=== PATIENT | female | born 1975 | race Caucasian/White ===

== ENCOUNTER 2018-10-17 18:01 | Emergency (ER) | payer SELFPAY ==
--- NOTE | 2018-10-17 18:04 | ER Report ---
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 Patient admits to smoking, not being on her antihypertensives for the past several weeks. Patient usually is on lisinopril 40 mg, amlodipine. Patient reports lower back pain, coughing with rib pain. Patient reports that she is continuing to smoke. Patient is afebrile, hemodynamically stable at time of evaluation. REVIEW OF SYSTEMS: Constitutional: No fever, no chills. Eyes: No discharge. ENT: No sore throat. Cardiovascular: No chest pain, no palpitations. Respiratory: + Nonproductive cough, + shortness of breath. Gastrointestinal: No abdominal pain, no vomiting.+ Bilateral lower back pain Genitourinary: No hematuria. Musculoskeletal: Bilateral flank pain Skin: No rashes. Neurological: No headache. Allergies: Coded Allergies: No Known Drug Allergies (Unverified , 10/17/18) Home Meds Active Scripts Oseltamivir Phosphate (TAMIFLU) 75 Mg Cap, 75 MG PO BID for 5 Days, #10 CAP 0 Refills Prov:SHELL CAVAZOS DO 10/17/18 Amlodipine Besylate (AMLODIPINE BESYLATE) 10 Mg Tablet, 1 TAB PO QDAY for 30 Days, #30 TAB Prov:SHELL CAVAZOS DO 10/17/18 Lisinopril (LISINOPRIL) 40 Mg Tablet, 40 MG PO QDAY for 30 Days, #30 TAB Prov:SHELL CAVAZOS DO 10/17/18 Constitutional Vital Sign - Last 24 Hours 10/17/18 18:05 Temp 98.6 Pulse 92 Resp 18 Pulse Ox 91 O2 Delivery Room Air Physical Exam General Appearance: The patient is alert, has no immediate need for airway protection and no signs of toxicity. Uncomfortable appearing Eyes: Pupils equal and round no pallor or injection. ENT, Mouth: Mucous membranes are moist. Respiratory: There are no retractions, lungs are clear to auscultation. Cardiovascular: Regular rate and rhythm. Gastrointestinal: Abdomen is soft and non tender, no masses, bowel sounds n ormal. Neurological: No focal neurological findings Skin: Warm and dry, no rashes. Musculoskeletal: Neck is supple non tender. Extremities are nontender, nonswollen and have full range of motion. DIFFERENTIAL DIAGNOSIS: After history and physical exam differential diagnosis was considered for adult fever including but not limited to viral syndromes including influenza, urinary tract infection, pneumonia and sepsis, medication noncompliance Medical Decision Making Data Points Result Diagram: 10/17/18 1830 10/17/18 1830 Laboratory Hematology Test 10/17/18 18:13 10/17/18 18:30 10/17/18 18:37 Influenza Virus Type A (PCR) Positive (NEGATIVE) Influenza Virus Type B (PCR) Negative (NEGATIVE) Red Blood Count 4.72 M/uL (4.17-5.56) Mean Corpuscular Volume 86.8 fL (80.0-96.0) Mean Corpuscular Hemoglobin 29.5 pg (26.0-33.0) Mean Corpuscular Hemoglobin Concent 33.9 g/dL (32.0-36.0) Red Cell Distribution Width 13.0 % (11.5-14.5) Mean Platelet Volume 8.8 fL (7.2-11.1) Neutrophils (%) (Auto) 52.8 % (39.4-72.5) Lymphocytes (%) (Auto) 28.0 % (17.6-49.6) Monocytes (%) (Auto) 13.7 % (4.1-12.4) Eosinophils (%) (Auto) 4.8 % (0.4-6.7) Basophils (%) (Auto) 0.7 % (0.3-1.4) Nucleated RBC Relative Count (auto) 0.1 /100WBC Neutrophils # (Auto) 2.4 K/uL (2.0-7.4) Lymphocytes # (Auto) 1.3 K/uL (1.3-3.6) Monocytes # (Auto) 0.6 K/uL (0.3-1.0) Eosinophils # (Auto) 0.2 K/uL (0.0-0.5) Basophils # (Auto) 0.0 K/uL (0.0-0.1) Nucleated RBC Absolute Count (auto) 0.01 K/uL Sodium Level 137 mmol/L (137-145) Potassium Level 3.3 mmol/L (3.5-5.0) Chloride Level 102 mmol/L (98-107) Carbon Dioxide Level 27 mmol/L (22-31) Blood Urea Nitrogen 18 mg/dl (7-18) Creatinine 0.70 mg/dl (0.52-1.04) Glomerular Filtration Rate Calc > 60.0 Random Glucose 185 mg/dl (75-110) Calcium Level 8.4 mg/dl (8.4-10.2) Total Bilirubin 0.1 mg/dl (0.2-1.3) Aspartate Amino Transf (AST/SGOT) 34 U/L (0-35) Alanine Aminotransferase (ALT/SGPT) 47 U/L (0-56) Alkaline Phosphatase 110 U/L (0-126) Total Protein 6.7 g/dl (6.3-8.2) Albumin 3.6 g/dl (3.5-5.0) Urine Color Yellow Urine Clarity Clear Urine pH 6.0 pH (4.8-9.5) Urine Specific [place] 1.026 Urine Protein Negative mg/dL (NEGATIVE) Urine Glucose (UA) 500 mg/dL (NEGATIVE) Urine Ketones Trace mg/dL (NEGATIVE) Urine Blood Negative (NEGATIVE) Urine Nitrite Negative (NEGATIVE) Urine Bilirubin Negative (NEGATIVE) Urine Urobilinogen 2.0 mg/dL (0.2-1.9) Urine Leukocyte Esterase Negative (NEGATIVE) Urine RBC 1 /HPF (0-2/HPF) Urine WBC <1 /HPF (0-5/HPF) Urine Squamous Epithelial Cells None /LPF (</=FEW) Urine Bacteria Negative /HPF (NONE-FEW) Urine Mucus None /HPF (NONE-FEW) Chemistry Test 10/17/18 18:13 10/17/18 18:30 10/17/18 18:37 Influenza Virus Type A (PCR) Positive (NEGATIVE) Influenza Virus Type B (PCR) Negative (NEGATIVE) White Blood Count 4.5 k/uL (4.5-11.0) Red Blood Count 4.72 M/uL (4.17-5.56) Hemoglobin 13.9 g/dL (12.0-16.0) Hematocrit 41.0 % (34.0-47.0) Mean Corpuscular Volume 86.8 fL (80.0-96.0) Mean Corpuscular Hemoglobin 29.5 pg (26.0-33.0) Mean Corpuscular Hemoglobin Concent 33.9 g/dL (32.0-36.0) Red Cell Distribution Width 13.0 % (11.5-14.5) Platelet Count 229 K/uL (150-450) Mean Platelet Volume 8.8 fL (7.2-11.1) Neutrophils (%) (Auto) 52.8 % (39.4-72.5) Lymphocytes (%) (Auto) 28.0 % (17.6-49.6) Monocytes (%) (Auto) 13.7 % (4.1-12.4) Eosinophils (%) (Auto) 4.8 % (0.4-6.7) Basophils (%) (Auto) 0.7 % (0.3-1.4) Nucleated RBC Relative Count (auto) 0.1 /100WBC Neutrophils # (Auto) 2.4 K/uL (2.0-7.4) Lymphocytes # (Auto) 1.3 K/uL (1.3-3.6) Monocytes # (Auto) 0.6 K/uL (0.3-1.0) Eosinophils # (Auto) 0.2 K/uL (0.0-0.5) Basophils # (Auto) 0.0 K/uL (0.0-0.1) Nucleated RBC Absolute Count (auto) 0.01 K/uL Glomerular Filtration Rate Calc > 60.0 Calcium Level 8.4 mg/dl (8.4-10.2) Total Bilirubin 0.1 mg/dl (0.2-1.3) Aspartate Amino Transf (AST/SGOT) 34 U/L (0-35) Alanine Aminotransferase (ALT/SGPT) 47 U/L (0-56) Alkaline Phosphatase 110 U/L (0-126) Total Protein 6.7 g/dl (6.3-8.2) Albumin 3.6 g/dl (3.5-5.0) Urine Color Yellow Urine Clarity Clear Urine pH 6.0 pH (4.8-9.5) Urine Specific [place] 1.026 Urine Protein Negative mg/dL (NEGATIVE) Urine Glucose (UA) 500 mg/dL (NEGATIVE) Urine Ketones Trace mg/dL (NEGATIVE) Urine Blood Negative (NEGATIVE) Urine Nitrite Negative (NEGATIVE) Urine Bilirubin Negative (NEGATIVE) Urine Urobilinogen 2.0 mg/dL (0.2-1.9) Urine Leukocyte Esterase Negative (NEGATIVE) Urine RBC 1 /HPF (0-2/HPF) Urine WBC <1 /HPF (0-5/HPF) Urine Squamous Epithelial Cells None /LPF (</=FEW) Urine Bacteria Negative /HPF (NONE-FEW) Urine Mucus None /HPF (NONE-FEW) Urinalysis Test 10/17/18 18:37 Urine Color Yellow Urine Clarity Clear Urine pH 6.0 pH (4.8-9.5) Urine Specific [place] 1.026 Urine Protein Negative mg/dL (NEGATIVE) Urine Glucose (UA) 500 mg/dL (NEGATIVE) Urine Ketones Trace mg/dL (NEGATIVE) Urine Blood Negative (NEGATIVE) Urine Nitrite Negative (NEGATIVE) Urine Bilirubin Negative (NEGATIVE) Urine Urobilinogen 2.0 mg/dL (0.2-1.9) Urine Leukocyte Esterase Negative (NEGATIVE) Urine RBC 1 /HPF (0-2/HPF) Urine WBC <1 /HPF (0-5/HPF) Urine Squamous Epithelial Cells None /LPF (</=FEW) Urine Bacteria Negative /HPF (NONE-FEW) Urine Mucus None /HPF (NONE-FEW) EKG/Imaging Imaging Location: [facility] [place] Patient: Dedra Damon : 1975 Visit/Account:[id number] Date of Sevice: 10/17/2018 Study: Single portable view of the chest. Indication: Cough and weakness Comparison study: None. Technique: Single AP view of the chest demonstrates no evidence of acute infiltrate. There is no evidence of pleural effusion or pneumothorax. The mediastinal, cardiac, and diaphragmatic contours are unremarkable. IMPRESSION: Unremarkable chest. ED Course/Re-evaluation ED Course Patient is a 43-year-old female here with complaints of cough, shortness breath, flank pain since, hypertension not currently on her antihypertensives as she is visiting for work. Patient was given scripts for amlodipine, lisinopril to take in the interim she was notably hypertensive at time of evaluation with no signs of end organ damage. Labs are unremarkable. Patient was positive for influenza A. Patient was given prescription for Tamiflu and advised to aggressively hydrate. Recommend close PCP follow-up. Return precautions provided Decision to Disposition Date: Oct 17, 2018 Decision to Disposition Time: 19:49 Depart Departure Latest Vital Signs Vital Signs Date Time Temp Pulse Resp B/P (MAP) Pulse Ox O2 Delivery O2 Flow Rate FiO2 10/17/18 18:05 98.6 92 18 91 Room Air Impression: Primary Impression: Hypertension Additional Impression: Influenza A Condition: Improved Disposition: HOME OR SELF-CARE New Scripts Oseltamivir Phosphate (TAMIFLU) 75 Mg Cap 75 MG PO BID for 5 Days, #10 CAP 0 Refills Prov: SHELL CAVAZOS DO 10/17/18 Amlodipine Besylate (AMLODIPINE BESYLATE) 10 Mg Tablet 1 TAB PO QDAY for 30 Days, #30 TAB Prov: SHELL CAVAZOS DO 10/17/18 Lisinopril (LISINOPRIL) 40 Mg Tablet 40 MG PO QDAY for 30 Days, #30 TAB Prov: SHELL CAVAZOS DO 10/17/18 Departure Forms: ER Transition Record, Medications Reconciliation, Off Work/School Form, School or Work Release?: Work Number of days to be released: 2 Patient Portal Information Patient Instructions: Hypertension (ED), Influenza (DC) Additional Instructions: Please drink plenty of water. Please fill your antihypertensive medications to manage her blood pressure. Please follow-up with her primary care provider and check your blood pressure in the meantime. Please take Tamiflu 1 tablet twice daily for 5 days. Please return immediately for develop chest pain, decreased urination, headaches, fevers or chills. Problem Qualifiers SHELL CAVAZOS DO Oct 17, 2018 18:04
[2018-10-17] MEDS ORDERED: LISI-374 PO (18:21)
[2018-10-17] MEDS ORDERED: AMLO-127 PO (18:21)
[2018-10-17 18:45] LABS: PLATELET COUNT, AUTOMATED 229 K/uL (150-450)
[2018-10-17] MEDS ORDERED: OSE75 PO (19:07)
--- NOTE | 2018-10-17 19:35 | RADIOLOGY IMAGING REPORT ---
FACILITY: [facility] PATIENT NAME: Dedra Damon : 1975 MR: [id number] V: [id number] EXAM DATE: ORDERING PHYSICIAN: SHELL CAVAZOS TECHNOLOGIST: Location: [facility] Patient: Dedra Damon : 1975 Visit/Account:[id number] Date of Sevice: 10/17/2018 Study: Single portable view of the chest. Indication: Cough and weakness Comparison study: None. Technique: Single AP view of the chest demonstrates no evidence of acute infiltrate. There is no evid ence of pleural effusion or pneumothorax. The mediastinal, cardiac, and diaphragmatic contours are un remarkable. IMPRESSION: Unremarkable chest. Report Dictated By: Yayo Mccall at 10/17/2018 7:32 PM Report E-Signed By: Yayo Mccall at 10/17/2018 7:32 PM [id number]
[2018-10-17] MEDS ORDERED: KETOROLAC 60 MG/2 ML VIAL IM ONE (19:55)
== END 2018-10-17 20:23 | disposition home or self-care (01) ==
LOC: ER 18:22
DX: J10.1 Influenza due to other identified influenza virus with other respiratory manifestations (principal); I10 Essential (primary) hypertension
CPT/HCPCS: 36415; 71045; 81001; 85025; 87502; 96372; 99283; J1885; 82040; 82247; 82310; 82374; 82435; 82565; 82947; 84075; 84132; 84155; 84295; 84450; 84460; 84520

== ENCOUNTER 2018-11-25 21:14 | Emergency (ER) | payer SELFPAY ==
[~2018-11-25 21:14] MED LIST changes: -ASPI-1471 PO
[2018-11-25] MEDS ORDERED: NS(*) 0.9% 1000 ML BAG 1,000 ML IV ONE (21:21)
--- NOTE | 2018-11-25 21:21 | ER Report ---
History and Physical Time Seen By MD: 21:21 HPI/ROS CHIEF COMPLAINT: Syncope, chest pain HISTORY OF PRESENT ILLNESS: 43-year-old female with a history of an enlarged heart status post stent placement 11 years ago collapsed in the [facility]. Developing sudden onset of chest pain. Patient on arrival has an EKG that shows gross ST elevation in the inferior leads of approximate 4-5 mm with reciprocal changes. There are no old EKGs for comparison. Patient fell striking her face. She has dental trauma to her front teeth. She denies head impact or neck pain. EMS administered aspirin in the field. Patient reports a history of an enlarged heart and 2+ posterior be taking Plavix but she ran out. Her previous ER visit here shows refill of her blood pressure medication, lisinopril and amlodipine REVIEW OF SYSTEMS: Respiratory: No cough, no dyspnea. Cardiovascular: As above Gastrointestinal: No vomiting, no abdominal pain. Musculoskeletal: No back pain. Allergies: Coded Allergies: No Known Drug Allergies (Unverified , 11/25/18) Home Meds Active Scripts Amlodipine Besylate (AMLODIPINE BESYLATE) 10 Mg Tablet, 1 TAB PO QDAY for 30 Days, #30 TAB Prov:SHELL CAVAZOS DO 10/17/18 Lisinopril (LISINOPRIL) 40 Mg Tablet, 40 MG PO QDAY for 30 Days, #30 TAB Prov:SHELL CAVAZOS DO 10/17/18 Reported Medications Aspirin (ASPIR 81) 81 Mg Tablet.dr, 81 MG PO QDAY, TAB 11/25/18 Discontinued Scripts Oseltamivir Phosphate (TAMIFLU) 75 Mg Cap, 75 MG PO BID for 5 Days, #10 CAP 0 Refills Prov:SHELL CAVAZOS DO 10/17/18 Past Medical/Surgical History Enlarged heart, stent placement 11 years ago Reviewed Nurses Notes: Yes Old Medical Records Reviewed: Yes Hx Substance Use Disorder: No Hx Alcohol Use: No Constitutional Vital Sign - Last 24 Hours 11/25/18 11/25/18 11/25/18 11/25/18 21:17 21:21 21:24 21:29 Pulse 72 79 73 Resp 20 26 19 B/P (MAP) 131/93 131/93 (106) 131/116 (121) Pulse Ox 99 99 97 O2 Delivery Nasal Cannula 11/25/18 11/25/18 11/25/18 11/25/18 21:34 21:39 21:42 21:44 Pulse 72 80 77 Resp 8 B/P (MAP) 137/106 (116) 152/111 (125) 158/118 (131) Pulse Ox 99 98 94 11/25/18 11/25/18 11/25/18 11/25/18 21:46 21:48 21:49 21:50 Pulse 81 B/P (MAP) 178/117 (137) 164/114 (131) 150/139 (143) Pulse Ox 100 11/25/18 11/25/18 11/25/18 11/25/18 21:52 21:54 21:59 22:00 Pulse 82 84 B/P (MAP) 156/115 (129) ???/??? (1665) 181/131 (148) Pulse Ox 100 11/25/18 11/25/18 11/25/18 11/25/18 22:02 22:04 22:06 22:08 Pulse 89 B/P (MAP) 206/124 (151) 178/120 (139) 193/128 (149) 191/118 (142) Pulse Ox 100 11/25/18 11/25/18 11/25/18 11/25/18 22:09 22:10 22:12 22:14 Pulse 86 90 B/P (MAP) 194/118 (143) 191/96 (127) 186/118 (140) Pulse Ox 100 99 11/25/18 11/25/18 11/25/18 11/25/18 22:16 22:18 22:19 22:20 Pulse 98 B/P (MAP) 150/134 (139) 180/96 (124) 164/102 (122) Pulse Ox 98 11/25/18 11/25/18 22:22 22:24 Pulse 101 B/P (MAP) 166/116 (133) Pulse Ox 98 Physical Exam Vital signs stable, afebrile General Appearance: The patient is alert, has no immediate need for airway protection and no current signs of toxicity., Pale, diaphoretic Eyes: Pupils equal and round no injection. Respiratory: Chest is non tender, lungs are clear to auscultation. Cardiac: regular rate and rhythm, distant heart sounds Gastrointestinal: Abdomen is soft and non tender, no masses, bowel sounds normal. Musculoskeletal: Neck: Neck is supple and non tender. Extremities have full range of motion and are non tender. Skin: No rashes or lesions. DIFFERENTIAL DIAGNOSIS: After history and physical exam differential diagnosis was considered for chest pain including but not limited to myocardial ischemia, pericarditis pulmonary embolus, chest wall pain, pleural inflammation and pulmonary infectious causes. Medical Decision Making Data Points Result Diagram: 11/25/18212911/25/182129 Laboratory Hematology Test 11/25/18 21:30 Red Blood Count 5.55 M/uL (4.17-5.56) Mean Corpuscular Volume 86.1 fL (80.0-96.0) Mean Corpuscular Hemoglobin 29.0 pg (26.0-33.0) Mean Corpuscular Hemoglobin Concent 33.6 g/dL (32.0-36.0) Red Cell Distribution Width 13.0 % (11.5-14.5) Mean Platelet Volume 8.7 fL (7.2-11.1) Neutrophils (%) (Auto) 71.2 % (39.4-72.5) Lymphocytes (%) (Auto) 20.4 % (17.6-49.6) Monocytes (%) (Auto) 6.7 % (4.1-12.4) Eosinophils (%) (Auto) 0.8 % (0.4-6.7) Basophils (%) (Auto) 0.9 % (0.3-1.4) Nucleated RBC Relative Count (auto) 0.1 /100WBC Neutrophils # (Auto) 11.3 K/uL (2.0-7.4) Lymphocytes # (Auto) 3.3 K/uL (1.3-3.6) Monocytes # (Auto) 1.1 K/uL (0.3-1.0) Eosinophils # (Auto) 0.1 K/uL (0.0-0.5) Basophils # (Auto) 0.1 K/uL (0.0-0.1) Nucleated RBC Absolute Count (auto) 0.01 K/uL Prothrombin Time 13.4 seconds (12.0-14.4) Prothromb Time International Ratio 1.02 Activated Partial Thromboplast Time 26 seconds (23-35) D-Dimer Quantitative (PE/DVT) 0.57 ug/ml (0-0.50) Sodium Level 137 mmol/L (137-145) Potassium Level 3.0 mmol/L (3.5-5.0) Chloride Level 100 mmol/L (98-107) Carbon Dioxide Level 25 mmol/L (22-31) Blood Urea Nitrogen 13 mg/dl (7-18) Creatinine 0.70 mg/dl (0.52-1.04) Glomerular Filtration Rate Calc > 60.0 Random Glucose 264 mg/dl (75-110) Calcium Level 9.0 mg/dl (8.4-10.2) Total Bilirubin 0.1 mg/dl (0.2-1.3) Aspartate Amino Transf (AST/SGOT) 40 U/L (0-35) Alanine Aminotransferase (ALT/SGPT) 43 U/L (0-56) Alkaline Phosphatase 113 U/L (0-126) Troponin I 0.146 ng/ml B-Type Natriuretic Peptide 39 pg/ml (0-100) Total Protein 7.7 g/dl (6.3-8.2) Albumin 4.2 g/dl (3.5-5.0) Human Chorionic Gonadotropin, Qual Negative (NEGATIVE) Chemistry Test 11/25/18 21:30 White Blood Count 15.9 k/uL (4.5-11.0) Red Blood Count 5.55 M/uL (4.17-5.56) Hemoglobin 16.1 g/dL (12.0-16.0) Hematocrit 47.8 % (34.0-47.0) Mean Corpuscular Volume 86.1 fL (80.0-96.0) Mean Corpuscular Hemoglobin 29.0 pg (26.0-33.0) Mean Corpuscular Hemoglobin Concent 33.6 g/dL (32.0-36.0) Red Cell Distribution Width 13.0 % (11.5-14.5) Platelet Count 354 K/uL (150-450) Mean Platelet Volume 8.7 fL (7.2-11.1) Neutrophils (%) (Auto) 71.2 % (39.4-72.5) Lymphocytes (%) (Auto) 20.4 % (17.6-49.6) Monocytes (%) (Auto) 6.7 % (4.1-12.4) Eosinophils (%) (Auto) 0.8 % (0.4-6.7) Basophils (%) (Auto) 0.9 % (0.3-1.4) Nucleated RBC Relative Count (auto) 0.1 /100WBC Neutrophils # (Auto) 11.3 K/uL (2.0-7.4) Lymphocytes # (Auto) 3.3 K/uL (1.3-3.6) Monocytes # (Auto) 1.1 K/uL (0.3-1.0) Eosinophils # (Auto) 0.1 K/uL (0.0-0.5) Basophils # (Auto) 0.1 K/uL (0.0-0.1) Nucleated RBC Absolute Count (auto) 0.01 K/uL Prothrombin Time 13.4 seconds (12.0-14.4) Prothromb Time International Ratio 1.02 Activated Partial Thromboplast Time 26 seconds (23-35) D-Dimer Quantitative (PE/DVT) 0.57 ug/ml (0-0.50) Glomerular Filtration Rate Calc > 60.0 Calcium Level 9.0 mg/dl (8.4-10.2) Total Bilirubin 0.1 mg/dl (0.2-1.3) Aspartate Amino Transf (AST/SGOT) 40 U/L (0-35) Alanine Aminotransferase (ALT/SGPT) 43 U/L (0-56) Alkaline Phosphatase 113 U/L (0-126) Troponin I 0.146 ng/ml B-Type Natriuretic Peptide 39 pg/ml (0-100) Total Protein 7.7 g/dl (6.3-8.2) Albumin 4.2 g/dl (3.5-5.0) Human Chorionic Gonadotropin, Qual Negative (NEGATIVE) Coagulation Test 11/25/18 21:30 Prothrombin Time 13.4 seconds Prothromb Time International Ratio 1.02 Activated Partial Thromboplast Time 26 seconds D-Dimer Quantitative (PE/DVT) 0.57 ug/ml EKG/Imaging EKG Interpretation 12 lead EKG: Rhythm: normal sinus rhythm [[place]:] normal QRS: normal ST segments: Findings consistent with a inferior wall ST [place] with 4-[address] elevation with reciprocal changes throughout 12 lead EKG: Right sided leads Rhythm: normal sinus rhythm [place]: normal QRS: normal ST segments: There is ST elevation in V4 consistent with right RV infarction Imaging X-ray: Angle view portable chest x-ray was obtained. I viewed the images myself on the PACS system. My interpretation of the images is: There is some widening of the mediastinum. It is suspicious. A stat read by radiology shows no concern for aneurysm or dissection.. The radiologist interpretation had no clinically significant variation from this interpretation. ED Course/Re-evaluation Clinical Indication for ER IV: Hydration, IV Access ED Course Patient was admitted to an examination room. H&P was done. The ankle diagnoses was considered. On clinical examination. Patient has a STEMI on EKG. STEMI protocol was reviewed. The check sheet was performed. Patient did fall and sustained some facial trauma, but her head shows no serious trauma. She is not complaining of any neck pain. She was put in a C-spine collar by EMS for precaution. There is a bruise to her front lip. And some bleeding. Her teeth are intact. Her immediate EKG shows a STEMI. STEMI protocol was activated. Cardiology was contacted at area ambulance was requested. A stat portable chest x-ray showed a suspicious that shadow and a that read was requested. Dr. Alfred Mendoza. Radiology thinks her chest x-ray is unremarkable and we will proceed with thrombolytics. Augusto will be by air ambulance. Patient's pressure remained quite high, 198/112. A nitroglycerin drip was initiated at 20 mcg/m Decision to Disposition Date: Nov 25, 2018 Decision to Disposition Time: 21:29 Critical Care Time I spent a total of 90 minutes of critical care time in obtaining history, performing a physical exam, bedside monitoring of interventions, collecting and interpreting tests and discussion with consultants but not including time spent performing procedures. Depart Departure Latest Vital Signs Vital Signs Date Time Temp Pulse Resp B/P (MAP) Pulse Ox O2 Delivery O2 Flow Rate FiO2 11/25/18 22:24 101 98 11/25/18 22:22 166/116 (133) 11/25/18 21:34 8 11/25/18 21:17 Nasal Cannula Impression: Primary Impression: STEMI (ST elevation myocardial infarction) Additional Impressions: History of coronary artery disease History of intravascular stent placement Condition: Critical Disposition: XFER TO [facility] Problem Qualifiers Primary Impression: STEMI (ST elevation myocardial infarction) Involved coronary artery: right coronary artery Qualified Codes: I21.11 - ST elevation (STEMI) myocardial infarction involving right coronary artery ROSEANNE RESTREPO DO Nov 25, 2018 21:21
[2018-11-25] MEDS ORDERED: ASPI-1471 PO (21:23)
[2018-11-25] MEDS ORDERED: ASPIRIN 81 MG CHEW PO ONE (21:25)
[2018-11-25] MEDS ORDERED: MORPHINE 4 MG/ML SDV IVP ONE (21:30)
[2018-11-25] MEDS ORDERED: ASPIRIN 81 MG CHEW CHEW STA (21:30)
[2018-11-25] MEDS ORDERED: HEPARIN (PORC) 5000 UN/ML VIAL IVP ONE (21:30)
[2018-11-25] MEDS ORDERED: ONDANSETRON 4 MG/2 ML VIAL IVP ONE (21:30)
[2018-11-25] MEDS ORDERED: CLOPIDOGREL BISULFATE 75MG TAB PO ONE (21:30)
[2018-11-25] MEDS ORDERED: TENECTEPLASE 50 MG KIT IVP ONE ×2 (21:30→23:14)
[2018-11-25] MEDS ORDERED: ONDANSETRON 4 MG/2 ML VIAL ONE (21:32)
[2018-11-25] MEDS ORDERED: MORPHINE 4 MG/ML SDV ONE (21:33)
[2018-11-25] MEDS ORDERED: STEMI KIT(*) 0 EA ONE (21:36)
[2018-11-25 21:39] LABS: PLATELET COUNT, AUTOMATED 354 K/uL (150-450)
[2018-11-25] MEDS ORDERED: HYDROMORPHONE HCL 1 MG/ML SYRINGE IVP ONE (21:40)
[2018-11-25 21:56] LABS: INR 1.02
--- NOTE | 2018-11-25 21:56 | RADIOLOGY IMAGING REPORT ---
FACILITY: [facility] [place] PATIENT NAME: Dedra Damon : 1975 MR: [id number] V: [id number] EXAM DATE: ORDERING PHYSICIAN: ROSEANNE RESTREPO TECHNOLOGIST: Location: [facility] Patient: Dedra Damon : 1975 Visit/Account:[id number] Date of Sevice: 11/25/2018 AP CHEST 11/25/2018 9:21 PM. INDICATION: Chest Pain COMPARISON: 10/17/2018. FINDINGS: Lung expansion is low normal. There is no consolidation. No pleural effusion or pneumothorax. Cardio mediastinal silhouette is likely normal given technique and expansion. Calcified mediastinal/hilar l ymph nodes. IMPRESSION: 1. No acute abnormality.. 2. Remote granulomatous infection. Report Dictated By: Giuseppe Mendoza MD at 11/25/2018 9:50 PM Report E-Signed By: Giuseppe Mendoza MD at 11/25/2018 9:52 PM [id number]
[2018-11-25] MEDS ORDERED: NS(*) 0.9% 50 ML BAG 50 ML ONE (22:07)
[2018-11-25] MEDS ORDERED: IOPAMIDOL 76% 150 ML INFUS BTL 150 ML ONE (22:07)
[2018-11-25] MEDS ORDERED: NITROGLYCERN* 50 MG/D5W 250 ML 250 ML ONE (22:09)
[2018-11-25] MEDS ORDERED: AMIODARONE 150 MG/3 ML INJ ONE (22:17)
[2018-11-25 22:22] VITALS: BP 166/116
[2018-11-25] MEDS ORDERED: CLOPIDOGREL BISULFATE 75MG TAB ONE (23:13)
[2018-11-25] MEDS ORDERED: HEPARIN (PORC) 5000 UN/ML VIAL ONE (23:13)
[2018-11-25] MEDS ORDERED: MORPHINE 2 MG/ML SYR ONE (23:14)
[2018-11-25] MEDS: HEPARIN* SOD/D5W 25000 U/500ML 500 ML IV ONE (23:14)
--- NOTE | 2018-11-26 00:12 | EKG ---
FACILITY: [facility] [place] PATIENT NAME: JOANNE JENKINS : [id number] MR: [id number] V: [id number] EXAM DATE: ORDERING PHYSICIAN: ROSEANNE RESTREPO TECHNOLOGIST: TRINY Joe Reason : CP Blood Pressure : / mmHG Vent. Rate : 072 BPM Atrial Rate : 071 BPM P-R Int : 000 ms QRS Dur : 172 ms QT Int : 488 ms P-R-T Axes : 000 -86 089 degrees QTc Int : 534 ms Appears to be complete heartblock with idioventricular rhythm Left axis deviation Right bundle branch block Abnormal ECG No previous ECGs available Confirmed by FANTA ANN ([id number]) on 11/26/2018 12:39:35 AM Referred By: Confirmed By:FANTA ANN
--- NOTE | 2018-11-26 00:12 | EKG ---
FACILITY: [facility] PATIENT NAME: JOANNE JENKINS : [id number] MR: [id number] V: [id number] EXAM DATE: ORDERING PHYSICIAN: ROSEANNE RESTREPO TECHNOLOGIST: TRINY Joe Reason : CP Blood Pressure : / mmHG Vent. Rate : 096 BPM Atrial Rate : 096 BPM P-R Int : 194 ms QRS Dur : 096 ms QT Int : 416 ms P-R-T Axes : 058 043 107 degrees QTc Int : 525 ms Difficult to discern rhythm, but appears to be sinus Dramatic ST elevation in II, III, AVF with ST depression in I, AVL, V1, V2 ACUTE LA Abnormal ECG Significant artifact - recommend repeat EKG Confirmed by FANTA ANN ([id number] on 11/26/2018 12:42:40 AM Referred By: Confirmed By:FANTA ANN
[2018-11-26] MEDS ORDERED: HEPARIN* SOD/D5W 25000 U/500ML 500 ML IV ONE (04:08)
[2018-11-26] MEDS ORDERED: NITROGLYCERIN 5 MG/ML VIAL 50 MG in D5W(*) 250 ML BAG 250 ML IVPB ONE (04:10)
== END 2018-11-25 22:41 | disposition short-term general hospital (02) ==
LOC: ER 21:26
DX: I21.11 ST elevation (STEMI) myocardial infarction involving right coronary artery (principal); I25.10 Atherosclerotic heart disease of native coronary artery without angina pectoris
CPT/HCPCS: 71045; 83880; 84484; 84703; 85025; 85379; 85610; 85730; 93005; 96374; 96375; 99291; 99292; J1170; J1644; J2270; J2405; J3101; J7030; J7050; L0172; Q9967; 82040; 82247; 82310; 82374; 82435; 82565; 82947; 84075; 84132; 84155; 84295; 84450; 84460; 84520; J3490; J7060

== ENCOUNTER → 2018-11-25 | Outpatient (CLI) | payer SELFPAY ==
[~2018-11-25] MED LIST: AMLO-127 PO; ASPI-1471 PO; LISI-374 PO; OSE75 PO
== END ==
LOC: AMB 21:02
PROVIDERS: ATTEND Nurse Practitioner
DX: I49.9 Cardiac arrhythmia, unspecified (principal); R55 Syncope and collapse; W18.39XA Other fall on same level, initial encounter
CPT/HCPCS: A0425; A0427

== ENCOUNTER → 2018-11-25 | Outpatient (REF) | LOC: AMB 21:47 | PROVIDERS: ATTEND Nurse Practitioner | DX: I21.3 ST elevation (STEMI) myocardial infarction of unspecified site (principal) ==

== ENCOUNTER 2018-12-22 10:26 | Emergency (ER) | payer SELFPAY ==
[~2018-12-22 10:26] MED LIST changes: +ASPI-1471 PO
--- NOTE | 2018-12-22 10:29 | ER Report ---
History and Physical Time Seen By MD: 10:29 HPI/ROS CHIEF COMPLAINT: Rash HISTORY OF PRESENT ILLNESS: Patient is a 43-year-old female here with complaints of a pruritic rash which started yesterday evening, worsening today. Patient reports that the rash started on her lower extremities and has now spread to her torso, neck, chest. Denies new medications, new detergents, new soaps. Patient is concerned that this may be attributed to environmental allergies. Patient is hemodynamically stable, afebrile and denies recent illness. REVIEW OF SYSTEMS: Constitutional: No fever, no chills. Eyes: No discharge. ENT: No sore throat. Cardiovascular: No chest pain, no palpitations. Respiratory: No cough, no shortness of breath. Gastrointestinal: No abdominal pain, no vomiting. Genitourinary: No hematuria. Musculoskeletal: No back pain. Skin: + Diffuse, pruritic rash composed of punctate lesions and surrounding digital trauma. Neurological: No headache. Allergies: Coded Allergies: No Known Drug Allergies (Unverified , 12/22/18) Home Meds Active Scripts Amlodipine Besylate (AMLODIPINE BESYLATE) 10 Mg Tablet, 1 TAB PO QDAY for 30 Days, #30 TAB Prov:SHELL CAVAZOS DO 10/17/18 Lisinopril (LISINOPRIL) 40 Mg Tablet, 40 MG PO QDAY for 30 Days, #30 TAB Prov:SHELL CAVAZOS DO 10/17/18 Reported Medications Esomeprazole Magnesium (NEXIUM) 40 Mg Capsule.dr, 1 CAP PO QDAY, CAP 12/22/18 Clopidogrel Bisulfate (PLAVIX) 75 Mg Tablet, 1 TAB PO QDAY, TAB 12/22/18 Metoprolol Succinate (METOPROLOL SUCCINATE) 50 Mg Tab.er.24h, 1 TAB PO BID, TAB 12/22/18 Aspirin (ASPIR 81) 81 Mg Tablet.dr, 81 MG PO QDAY, TAB 11/25/18 Hx Substance Use Disorder: No Hx Alcohol Use: No Constitutional Vital Sign - Last 24 Hours 12/22/18 10:30 Temp 97.5 Pulse 90 Resp 22 B/P (MAP) 144/119 Pulse Ox 91 Physical Exam General Appearance: The patient is alert, has no immediate need for airway protection and no signs of toxicity. Uncomfortable appearing Eyes: Pupils equal and round no pallor or injection. ENT, Mouth: Mucous membranes are moist. Respiratory: There are no retractions, lungs are clear to auscultation. Cardiovascular: Regular rate and rhythm. [ ] Gastrointestinal: Abdomen is soft and non tender, no masses, bowel sounds normal. Neurological: No focal neurological deficits Skin: Warm and dry,+ diffuse pruritic rash with surrounding visual trauma and scratches, isolated punctate lesions with mild scant erythema surrounding Musculoskeletal: Neck is supple non tender. Extremities are nontender, nonswollen and have full range of motion. DIFFERENTIAL DIAGNOSIS: After history and physical exam differential diagnosis was considered for contact dermatitis, viral infection, bacterial infection, environmental allergy Medical Decision Making ED Course/Re-evaluation ED Course Patient is a 43-year-old female here with complaints of a pruritic rash which started last evening and has spread from her lower extremities to her neck including torso, chest. Patient was given Atarax for symptomatic treatment. Patient does describe that the initial rash presentation started with linear eruptions which are not readily observable at this time. Patient was given prescription for Atarax, prescription for permethrin in case rash does not resolve in the next 24 hours. PCP follow-up recommended. Return precautions provided. Decision to Disposition Date: December 22, 2018 Decision to Disposition Time: 11:46 Depart Departure Latest Vital Signs Vital Signs Date Time Temp Pulse Resp B/P (MAP) Pulse Ox O2 Delivery O2 Flow Rate FiO2 12/22/18 10:30 97.5 90 22 144/119 91 Impression: Primary Impression: Rash of entire body Condition: Improved Disposition: HOME OR SELF-CARE New Scripts Permethrin (ELIMITE) 60 Gm Cream..g. 30 GM TP ONCE, #1 TUBE Prov: SHELL CAVAZOS DO 12/22/18 Hydroxyzine Hcl (HYDROXYZINE HCL) 25 Mg Tablet 25 MG PO QID PRN for ITCHING, #30 TAB Prov: SHELL CAVAZOS DO 12/22/18 Patient Instructions: Acute Rash (ED) Additional Instructions: You may take 1 tablet of hydroxyzine every 6-8 hours as needed for itching. If symptoms do not resolve in the next 24 hours, consider applying permethrin cream one half to or 30 g to your entire body excluding mucous membranes and face and leave on for 8-14 hours and then rinse off the cream in the shower. Please follow-up with her primary care provider in the next 24-48 hours. Please return promptly if you develop worsening rash, difficulty breathing, difficulty swallowing, fevers or chills. SHELL CAVAZOS DO December 22, 2018 10:29
[2018-12-22] MEDS ORDERED: CLOP75TA43 PO (10:35)
[2018-12-22] MEDS ORDERED: METO50TA19 PO (10:35)
[2018-12-22] MEDS ORDERED: ESOM40CA42 PO (10:35)
[2018-12-22] MEDS ORDERED: hydrOXYzine 25 MG TAB PO ONE (10:45)
[2018-12-22] MEDS ORDERED: PERM60CR4 TP (11:51)
[2018-12-22] MEDS ORDERED: HYDR-4225 PO (11:51)
[2018-12-22 12:00] VITALS: BP 145/95
== END 2018-12-22 12:04 | disposition home or self-care (01) ==
LOC: ER 10:38
DX: R21 Rash and other nonspecific skin eruption (principal)
CPT/HCPCS: 99283

== ENCOUNTER 2018-12-26 15:28 | Emergency (ER) | payer SELFPAY ==
[~2018-12-26 15:28] MED LIST changes: -ATOR40TA24 PO
[2018-12-26] MEDS ORDERED: ASPIRIN 81 MG CHEW PO ONE (15:35)
[2018-12-26] MEDS ORDERED: NITROGLYCERIN 0.4 MG SUBL SL ONE (15:40)
--- NOTE | 2018-12-26 15:42 | ER Report ---
History and Physical Time Seen By MD: 15:41 Hx. of Stated Complaint: CHEST PAIN SINCE 90 MIN AGO. SITTING WATCHING TV WHEN IT STARTED. HAD FL 1 MONTH AGO, AND FEELS SIMILAR TO THAT. 324ASA 1 NITRO GIVEN BY EMS. NITRO TOOK PAIN FROM 03/23 TO 0 HPI/ROS CHIEF COMPLAINT: Chest pain HISTORY OF PRESENT ILLNESS: 43-year-old female comes in with the chest pain began several hours prior to take nitroglycerin with some relief patient is a very significant history 1st FL at 31 seconds FL in the early 40s she is told fo r stents placed spoke to her plant mechanic who referred her here also out of her nitros so she only took the one patient states that she is having a little bit of pain in her neck right now her chest pain has subsequently resolved or diaphoresis nausea vomiting diarrhea fever chills no shortness of breath this time. This is a dull ache that began several hours prior to presentation resolved with nitroglycerin and similar to her prior history REVIEW OF SYSTEMS: Respiratory: No cough, no dyspnea. Cardiovascular: Chest pain or palpitation Gastrointestinal: No vomiting, no abdominal pain. Musculoskeletal: No back pain. Remainder of the 14 system rev: Yes Allergies: Coded Allergies: No Known Drug Allergies (Unverified , 12/22/18) Home Meds Active Scripts Permethrin (ELIMITE) 60 Gm Cream..g., 30 GM TP ONCE, #1 TUBE Prov:SHELL CAVAZOS DO 12/22/18 Hydroxyzine Hcl (HYDROXYZINE HCL) 25 Mg Tablet, 25 MG PO QID PRN for ITCHING, #30 TAB Prov:SHELL CAVAZOS DO 12/22/18 Amlodipine Besylate (AMLODIPINE BESYLATE) 10 Mg Tablet, 1 TAB PO QDAY for 30 Days, #30 TAB Prov:SHELL CAVAZOS DO 10/17/18 Lisinopril (LISINOPRIL) 40 Mg Tablet, 40 MG PO QDAY for 30 Days, #30 TAB Prov:SHELL CAVAZOS DO 10/17/18 Reported Medications Atorvastatin Calcium (LIPITOR) 40 Mg Tablet, 2 TAB PO QDAY, TAB 12/26/18 Esomeprazole Magnesium (NEXIUM) 40 Mg Capsule.dr, 1 CAP PO QDAY, CAP 12/22/18 Clopidogrel Bisulfate (PLAVIX) 75 Mg Tablet, 1 TAB PO QDAY, TAB 12/22/18 Metoprolol Succinate (METOPROLOL SUCCINATE) 50 Mg Tab.er.24h, 1 TAB PO BID, TAB 12/22/18 Aspirin (ASPIR 81) 81 Mg Tablet.dr, 81 MG PO QDAY, TAB 11/25/18 Reviewed Nurses Notes: Yes Old Medical Records Reviewed: Yes Hx Substance Use Disorder: No Hx Alcohol Use: No Constitutional Vital Sign - Last 24 Hours 12/26/18 12/26/18 12/26/18 12/26/18 15:31 15:42 15:45 15:53 Temp 98.5 Pulse 73 76 74 76 Resp 18 B/P (MAP) 141/112 (122) 136/97 (110) 135/96 (109) Pulse Ox 93 O2 Delivery Room Air 12/26/18 12/26/18 12/26/18 12/26/18 16:04 16:09 16:24 16:30 Pulse 74 79 72 Resp 14 B/P (MAP) 132/91 (105) 131/104 (113) Pulse Ox 94 12/26/18 12/26/18 12/26/18 12/26/18 16:39 16:45 16:54 17:00 Pulse 68 78 Resp 16 19 B/P (MAP) 119/92 (101) 133/91 (105) Pulse Ox 92 93 12/26/18 12/26/18 12/26/18 12/26/18 17:09 17:15 17:24 17:30 Pulse 72 68 Resp 17 18 B/P (MAP) 129/98 (108) 114/81 (92) Pulse Ox 95 97 Physical Exam General Appearance: The patient is alert, has no immediate need for airway protection and no current signs of toxicity. [ ] Eyes: Pupils equal and round no injection. Respiratory: Chest is non tender, lungs are clear to auscultation. Cardiac: regular rate and rhythm [ ] Gastrointestinal: Abdomen is soft and non tender, no masses, bowel sounds normal. Musculoskeletal: Neck: Neck is supple and non tender. Extremities have full range of motion and are non tender. Skin: No rashes or lesions. [ ] DIFFERENTIAL DIAGNOSIS: After history and physical exam differential diagnosis was considered for acute myocardial infarction M STEMI angina stable anginal equivalent aortic dissection pulmonary emboli Medical Decision Making Data Points Result Diagram: 12/26/18 1604 12/26/18 1604 Laboratory Hematology Test 12/26/18 16:04 12/26/18 16:20 12/26/18 17:17 Red Blood Count 5.31 M/uL (4.17-5.56) Mean Corpuscular Volume 85.0 fL (80.0-96.0) Mean Corpuscular Hemoglobin 29.2 pg (26.0-33.0) Mean Corpuscular Hemoglobin Concent 34.3 g/dL (32.0-36.0) Red Cell Distribution Width 13.3 % (11.5-14.5) Mean Platelet Volume 9.1 fL (7.2-11.1) Neutrophils (%) (Auto) 43.4 % (39.4-72.5) Lymphocytes (%) (Auto) 39.1 % (17.6-49.6) Monocytes (%) (Auto) 10.6 % (4.1-12.4) Eosinophils (%) (Auto) 6.1 % (0.4-6.7) Basophils (%) (Auto) 0.8 % (0.3-1.4) Nucleated RBC Relative Count (auto) 0.1 /100WBC Neutrophils # (Auto) 3.2 K/uL (2.0-7.4) Lymphocytes # (Auto) 2.9 K/uL (1.3-3.6) Monocytes # (Auto) 0.8 K/uL (0.3-1.0) Eosinophils # (Auto) 0.4 K/uL (0.0-0.5) Basophils # (Auto) 0.1 K/uL (0.0-0.1) Nucleated RBC Absolute Count (auto) 0.00 K/uL D-Dimer Quantitative (PE/DVT) < 0.27 ug/ml (0-0.50) Sodium Level 136 mmol/L (137-145) Potassium Level 4.1 mmol/L (3.5-5.0) Chloride Level 102 mmol/L (98-107) Carbon Dioxide Level 21 mmol/L (22-31) Blood Urea Nitrogen 17 mg/dl (7-18) Creatinine 0.70 mg/dl (0.52-1.04) Glomerular Filtration Rate Calc > 60.0 Random Glucose 239 mg/dl (75-110) Calcium Level 9.1 mg/dl (8.4-10.2) Total Bilirubin 0.2 mg/dl (0.2-1.3) Aspartate Amino Transf (AST/SGOT) 30 U/L (0-35) Alanine Aminotransferase (ALT/SGPT) 42 U/L (0-56) Alkaline Phosphatase 103 U/L (0-126) Total Protein 7.8 g/dl (6.3-8.2) Albumin 4.3 g/dl (3.5-5.0) Urine Color Straw Urine Clarity Clear Urine pH 5.0 pH (4.8-9.5) Urine Specific Hudson 1.011 Urine Protein Negative mg/dL (NEGATIVE) Urine Glucose (UA) 500 mg/dL (NEGATIVE) Urine Ketones Negative mg/dL (NEGATIVE) Urine Blood Negative (NEGATIVE) Urine Nitrite Negative (NEGATIVE) Urine Bilirubin Negative (NEGATIVE) Urine Urobilinogen Negative mg/dL (0.2-1.9) Urine Leukocyte Esterase Negative (NEGATIVE) Urine RBC 1 /HPF (0-2/HPF) Urine WBC 2 /HPF (0-5/HPF) Urine Squamous Epithelial Cells Many /LPF (</=FEW) Urine Bacteria Negative /HPF (NONE-FEW) Urine Mucus None /HPF (NONE-FEW) Urine Opiates Screen Negative Urine Barbiturates Screen Negative Ur Tricyclic Antidepressants Screen Negative Urine Phencyclidine Screen Negative Urine Amphetamines Screen Negative Urine Benzodiazepines Screen Negative Urine Cocaine Screen Negative Urine Cannabinoids Screen Negative Troponin I < 0.012 ng/ml Chemistry Test 12/26/18 16:04 12/26/18 16:20 12/26/18 17:17 White Blood Count 7.3 k/uL (4.5-11.0) Red Blood Count 5.31 M/uL (4.17-5.56) Hemoglobin 15.5 g/dL (12.0-16.0) Hematocrit 45.1 % (34.0-47.0) Mean Corpuscular Volume 85.0 fL (80.0-96.0) Mean Corpuscular Hemoglobin 29.2 pg (26.0-33.0) Mean Corpuscular Hemoglobin Concent 34.3 g/dL (32.0-36.0) Red Cell Distribution Width 13.3 % (11.5-14.5) Platelet Count 312 K/uL (150-450) Mean Platelet Volume 9.1 fL (7.2-11.1) Neutrophils (%) (Auto) 43.4 % (39.4-72.5) Lymphocytes (%) (Auto) 39.1 % (17.6-49.6) Monocytes (%) (Auto) 10.6 % (4.1-12.4) Eosinophils (%) (Auto) 6.1 % (0.4-6.7) Basophils (%) (Auto) 0.8 % (0.3-1.4) Nucleated RBC Relative Count (auto) 0.1 /100WBC Neutrophils # (Auto) 3.2 K/uL (2.0-7.4) Lymphocytes # (Auto) 2.9 K/uL (1.3-3.6) Monocytes # (Auto) 0.8 K/uL (0.3-1.0) Eosinophils # (Auto) 0.4 K/uL (0.0-0.5) Basophils # (Auto) 0.1 K/uL (0.0-0.1) Nucleated RBC Absolute Count (auto) 0.00 K/uL D-Dimer Quantitative (PE/DVT) < 0.27 ug/ml (0-0.50) Glomerular Filtration Rate Calc > 60.0 Calcium Level 9.1 mg/dl (8.4-10.2) Total Bilirubin 0.2 mg/dl (0.2-1.3) Aspartate Amino Transf (AST/SGOT) 30 U/L (0-35) Alanine Aminotransferase (ALT/SGPT) 42 U/L (0-56) Alkaline Phosphatase 103 U/L (0-126) Total Protein 7.8 g/dl (6.3-8.2) Albumin 4.3 g/dl (3.5-5.0) Urine Color Straw Urine Clarity Clear Urine pH 5.0 pH (4.8-9.5) Urine Specific [place] 1.011 Urine Protein Negative mg/dL (NEGATIVE) Urine Glucose (UA) 500 mg/dL (NEGATIVE) Urine Ketones Negative mg/dL (NEGATIVE) Urine Blood Negative (NEGATIVE) Urine Nitrite Negative (NEGATIVE) Urine Bilirubin Negative (NEGATIVE) Urine Urobilinogen Negative mg/dL (0.2-1.9) Urine Leukocyte Esterase Negative (NEGATIVE) Urine RBC 1 /HPF (0-2/HPF) Urine WBC 2 /HPF (0-5/HPF) Urine Squamous Epithelial Cells Many /LPF (</=FEW) Urine Bacteria Negative /HPF (NONE-FEW) Urine Mucus None /HPF (NONE-FEW) Urine Opiates Screen Negative Urine Barbiturates Screen Negative Ur Tricyclic Antidepressants Screen Negative Urine Phencyclidine Screen Negative Urine Amphetamines Screen Negative Urine Benzodiazepines Screen Negative Urine Cocaine Screen Negative Urine Cannabinoids Screen Negative Troponin I < 0.012 ng/ml Coagulation Test 12/26/18 16:04 D-Dimer Quantitative (PE/DVT) < 0.27 ug/ml Toxicology Test 12/26/18 16:20 Urine Opiates Screen Negative Urine Barbiturates Screen Negative Ur Tricyclic Antidepressants Screen Negative Urine Phencyclidine Screen Negative Urine Amphetamines Screen Negative Urine Benzodiazepines Screen Negative Urine Cocaine Screen Negative Urine Cannabinoids Screen Negative Urinalysis Test 12/26/18 16:20 Urine Color Straw Urine Clarity Clear Urine pH 5.0 pH (4.8-9.5) Urine Specific [place] 1.011 Urine Protein Negative mg/dL (NEGATIVE) Urine Glucose (UA) 500 mg/dL (NEGATIVE) Urine Ketones Negative mg/dL (NEGATIVE) Urine Blood Negative (NEGATIVE) Urine Nitrite Negative (NEGATIVE) Urine Bilirubin Negative (NEGATIVE) Urine Urobilinogen Negative mg/dL (0.2-1.9) Urine Leukocyte Esterase Negative (NEGATIVE) Urine RBC 1 /HPF (0-2/HPF) Urine WBC 2 /HPF (0-5/HPF) Urine Squamous Epithelial Cells Many /LPF (</=FEW) Urine Bacteria Negative /HPF (NONE-FEW) Urine Mucus None /HPF (NONE-FEW) ED Course/Re-evaluation ED Course E [facility] course medical decision and 43-year-old female history of myocardial infarctions 2 comes in with vague nonspecific symptoms her troponins are negative 2 she is completely pain-free she wants to go home EKG showed no abnormality repeat troponin also negative patient will be discharge diagnosis atypical chest pain Decision to Disposition Date: December 26, 2018 Decision to Disposition Time: 17:53 Depart Departure Latest Vital Signs Vital Signs Date Time Temp Pulse Resp B/P (MAP) Pulse Ox O2 Delivery O2 Flow Rate FiO2 12/26/18 17:30 114/81 (92) 12/26/18 17:24 68 18 97 12/26/18 15:31 98.5 Room Air Impression: Primary Impression: Angina at rest Condition: Improved Disposition: HOME OR SELF-CARE Referrals: ALLEN KABA APRN [facility]PA[facility]-C 5 Days Patient Instructions: Angina (DC) KAMRAN PATEL MD December 26, 2018 15:42
[2018-12-26] MEDS ORDERED: ATOR40TA24 PO (15:43)
--- NOTE | 2018-12-26 15:55 | EKG ---
FACILITY: [facility] - [place] PATIENT NAME: JOANNE JENKINS : [id number] MR: [id number] V: [id number] EXAM DATE: ORDERING PHYSICIAN: KAMRAN PATEL TECHNOLOGIST: SERA Test Reason : CHEST PAIN Blood Pressure : / mmHG Vent. Rate : 068 BPM Atrial Rate : 068 BPM P-R Int : 152 ms QRS Dur : 088 ms QT Int : 418 ms P-R-T Axes : 048 -31 097 degrees QTc Int : 444 ms Normal sinus rhythm Left axis deviation T inversion consistent with lateral ischemia vs normal variant Inferior infarct , age undetermined Anterolateral infarct , age undetermined Previous ST elevation inferiorly/lateral precordial leads and ST depression lateral limb leads has r esolved Confirmed by LUCRETIA LIZ ([id number]) on 12/26/2018 7:05:00 PM Referred By: AMANDA Confirmed By:LUCRETIA LIZ
[2018-12-26 16:27] LABS: PLATELET COUNT, AUTOMATED 312 K/uL (150-450)
--- NOTE | 2018-12-26 16:39 | RADIOLOGY IMAGING REPORT ---
FACILITY: [facility] PATIENT NAME: Dedra Damon : 1975 MR: [id number] V: [id number] EXAM DATE: ORDERING PHYSICIAN: KAMRAN PATEL TECHNOLOGIST: Location: [facility] [place] Patient: Dedra Damon : 1975 Visit/Account:[id number] Date of Sevice: 12/26/2018 CHEST PA LAT COMPARISON: November 25, 2018 portable chest HISTORY: Chest pain, heart attack one month ago with stents placed FINDINGS: CARDIAC/VASC: Normal heart size and cardiac silhouette configuration. Unremarkable pulmonary vasc ulature. MEDIASTINUM: Granulomatous calcifications at the left hilum indicative of previous healed granulomat ous infection. LUNGS/PLEURA: No pneumothorax. No significant pulmonary parenchymal abnormalities. No effusion or p leural thickening. BONES: No fracture or visible bony lesion. Mild endplate spurring in the lower thoracic spine. OTHER: There is a clip in the left upper quadrant of the abdomen anteriorly. IMPRESSION: No acute cardiopulmonary process. 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 Report Dictated By: Brendan Olivo at 12/26/2018 4:33 PM Report E-Signed By: Brendan Olivo at 12/26/2018 4:35 PM WSN:[id number]
[2018-12-26 17:30] VITALS: BP 114/81
== END 2018-12-26 18:13 | disposition home or self-care (01) ==
LOC: ER 15:36
DX: I20.9 Angina pectoris, unspecified (principal); I25.2 Old myocardial infarction
CPT/HCPCS: 36415; 71046; 80305; 81001; 82040; 82247; 82310; 82374; 82435; 82565; 82947; 84075; 84132; 84155; 84295; 84450; 84460; 84484; 84520; 85025; 85379; 93005; 99284

== ENCOUNTER → 2018-12-26 | Outpatient (CLI) | payer SELFPAY ==
[~2018-12-26] MED LIST changes: +ATOR40TA24 PO; +CLOP75TA43 PO; +ESOM40CA42 PO; +HYDR-4225 PO; +METO50TA19 PO; +PERM60CR4 TP
== END ==
LOC: AMB 15:16
PROVIDERS: ATTEND Nurse Practitioner
DX: R07.9 Chest pain, unspecified (principal); R45.1 Restlessness and agitation
CPT/HCPCS: A0425; A0427